=== PATIENT | female | born 1975 | race Caucasian/White ===

== ENCOUNTER 2025-02-26 00:06 | Day surgery (SDC) | payer BC, SELFPAY ==
[2025-02-07 09:37] VITALS: BMI 22.3
--- OUTSIDE RECORDS SUMMARY | 2025-02-26 00:09 | XMS_ITS | Referral Summary ---
Author Organization [facility] [address] Address [address] [place] [address] Care Team Providers Care Substation Superintendent Name Role Phone Maurice Rudd MD Primary Care Provider [phone] Sharon Sultana NP Unavailable Allergies No known active allergies Medications Aviane 0.1-20 mg-mcg per tablet 05/04/2020 Active promethazine (PHENERGAN) 12.5 mg tablet 06/19/2020 Acti ve ALPRAZolam (XANAX) 0.25 mg tablet as needed 10/02/2020 Active cyclobenzaprine (FLEXERIL) 10 mg tablet 5 mg 06/16/2020 Active venlafaxine XR (EFFEXOR-XR) 75 mg 24 hr capsule Take 3 capsules (225 mg total) by mouth daily 90 capsule 09/08/2023 Active propranoloL (INDERAL) 10 mg tablet Take 1 tablet (10 mg total) by mouth 2 (two) times a day as needed (tremor) 30 tablet 11 09/08/2023 Active Active Problems Problem Noted Date Diagnosed Date Mass of left breast 03/29/2022 Abnormal mammogram 07/19/2020 Dizziness and giddiness 05/07/2020 Social History Tobacco Use Types Packs/Day Years Used Date Smoking Tobacco: Never Smokeless Tobacco: Never Alcohol Use Standard Drinks/Week Comments Yes 0 (1 standard drink = 0.6 oz pur e alcohol) Personal Safety Answer Date Recorded Getting School Help Needed Not on file 08/10 Comments No Sex and Gender Information Value Date Recorded Sex Assigned at Not on file Legal Sex Female 1:09 PM CDT Gender Identity Female 07/18/2020 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 Sexual Orientation Straight 07/18/2020 7: 01 PM SEGMENT ASSEMBLER Last Filed Vital Signs Vital Sign Reading Time Taken Comments Blood Pressure 106/72 04/16/2021 10:40 AM CDT Pulse 74 04/16/2021 10:40 AM CDT Temperature 36.7 C (98.1 F) 04/16/2021 10:40 AM CDT Respiratory Rate - - Oxygen Saturation 99% 04/16/2021 10:40 AM CDT Inhaled Oxygen Concentration - - Weight 61.9 kg (136 lb 7.4 oz) 03/27/2022 11:28 AM CDT Height 154.9 cm (5' 1) 03/27/2022 11:28 AM CDT Body Mass Index 25.78 03/27/2022 11:28 AM CDT Plan of Treatment Not on file Procedures Procedure Name Priority Date/Time Associated Diagnosis Comments SCREENING MAMMOGRAM BILATERAL W PANCHO Schedule Routine, Read Routine (OP Routine) 07/02/2023 9:14 AM SEGMENT ASSEMBLER Screening mammogram, encounter for from Last 3 Months or Most Recently Relevant to Health Maintenance Results * Screening Mammogram Bilateral W Pancho (07/02/2023 9:14 AM SEGMENT ASSEMBLER) Anatomical Region Laterality Modality Breast Bilateral Mammography Impressions 07/02/2023 9:29 AM SEGMENT ASSEMBLER BI-RADS ATLAS category (overall): 2 - Benign There is no mammographic evidence of malignancy. A 1 year screening mammogram is recommended. The patient has been or will be contacted. We recommend annual screening mammography for women at average risk of breast cancer beginning at age 40, based on guidelines of the [employer] (ACR Practice Parameter for the Performance of Screening and Diagnostic Mammography) and [employer]. For women with and elevated risk of breast cancer, please refer to the ACR Practice Parameter for specific screening recommendations. The patient will be entered into a reminder system with a target due date of 1 year for her next screening exam. Narrative 07/02/2023 9:29 AM SEGMENT ASSEMBLER Screening Mammogram Bilateral W Pancho: 07/02/23 The study was acquired using full field digital technology and interpreted from soft copy. 2D digital mammographic views, as well as 3D digital tomosynthesis were performed in the CC and MLO projections. CLINICAL: Screening mammogram, encounter for. No relevant medical history has been documented for this patient. No known family history of breast cancer. COMPARISONS: 03/27/2022 Diagnostic Mammogram Bilateral W Pancho 07/04/2021 Breast Imaging Diagnostic Outside Reference 06/13/2021 Breast Imaging Screening Outside Reference 06/21/2020 Breast Imaging Outside Reference BREAST TISSUE: The breasts are heterogeneously dense, which may obscure small masses. FINDINGS: Left breast cysts are again identified. No suspicious masses, suspicious calcifications, or other suspicious findings are seen within either breast. There has been no suspicious change. us Self Screening Mammogram IMG MAMMO PROCEDURES Fi nal Result from Last 3 Months or Most Recently Relevant to Health Maintenance Insurance CHOICE [place] PPO [place] Care Teams Substation Superintendent Relationship Specialty Start Date End Date Maurice Rudd MD [phone] [place] [address] PCP - General Internal Medicine 05/03/20 Sharon Sultana NP [address] [place] [address] Nurse Practitioner 06/03/20
--- OUTSIDE RECORDS SUMMARY | 2025-02-26 00:10 | XMS_ITS | Clinical Summary ---
Author Organization [facility] Address [address] [place] [id number] Care Team Providers Care Lease Administrator Name Role Phone Maurice Rudd MD Primary Care Provider [phone] Allergies No known active allergies Medications naproxen 500 MG tablet Take 1 tablet (500 mg total) by mouth 2 (two) times daily with meals. 60 tablet 09/12/19 21 Active venlafaxine XR (EFFEXOR-XR) 75 MG 24 hr capsule Take 1 capsule (75 mg total) by mouth 3 (three) times daily. 09/08/19 24 Active propranolol LA (INDERAL LA) 60 MG 24 hr capsule propranolol ER 60 mg capsule,24 hr,extended release Active tobramycin-dexamet hasone (TOBRADEX) ophthalmic solution INSTILL 1 DROP INTO EACH EYE 4 TIMES DAILY FOR 7 DAYS THEN 1 INTO EACH EYE TWICE DAILY FOR 7 DAYS THEN STOP 08/11/20 23 Active ondansetron (ZOFRAN-ODT) 4 MG disintegrating tablet Take 1 tablet (4 mg total) by mouth every 8 (eight) hours as needed for Nausea. 20 tablet 02/15/20 24 Active Social History Tobacco Use Types Packs/Day Years Used Date Smoking Tobacco: Never Smokeless Tobacco: Never Tobacco Cessation:Counseling Given: No Alcohol Use Standard Drinks/Week Comments Not Currently 0 (1 standard drink = 0.6 oz pur e alcohol) PHQ-2 Answer Date Recorded Patient Health Questionnaire-2 Score 0 02/14/2024 Comments No Sex and Gender Information Value Date Recorded Sex Assigned at Not on file Legal Sex Female 7:00 PM CDT Gender Identity Not on file Sexual Orientation Not on file Last Filed Vital Signs Vital Sign Reading Time Taken Comments Blood Pressure 114/85 02/15/2024 12:22 AM CDT Pulse 120 02/14/2024 8:43 PM CDT Temperature 36.5 C (97.7 F) 02/14/2024 8:43 PM CDT Respiratory Rate 18 02/15/2024 12:22 AM CDT Oxygen Saturation 100% 02/15/2024 12:22 AM CDT Inhaled Oxygen Concentration - - Weight 58.4 kg (128 lb 12 oz) 02/14/2024 8:43 PM CDT Height 154.9 cm (5' 1) 02/14/2024 8:43 PM CDT Body Mass Index 24.33 02/14/2024 8:43 PM CDT Plan of Treatment Upcoming Encounters Date Type Department Care Team (Late st Contact Info) Description 05/17/2025 1:20 PM CDT Office Visit [facility] - [address] [place] [address] Easton Russ MD [address] [place] [id number] Health Maintenance Due Date Last Done Comments Colorectal Cancer Screening Colonoscopy (10 Years) 1974 Annual Physical 1977 Hepatitis C 1992 DTaP, Tdap and Td Vaccines (1 - Tdap) 1993 Hepatitis B Vaccines (1 of 3 - 19+ 3-dose series) 1993 Cervical Cancer Screening Pap with HPV Testing (Age 30 to 64) Every 5 Years 2004 Mammogram Screening 07/04/2023 07/04/2021, 06/13/2021, 05/30/2020, Additional history exists Cervical Cancer Screening Pap Smear (Age 30 to 64) Every 3 Years 02/04/2024 02/03/2021 Cervical Cancer Screening with HPV 02/04/2024 Pneumococcal Vaccine: 50+ Years (1 of 1 - PCV) 2024 Zoster Vaccines (1 of 2) 2024 COVID-19 Vaccine ( - 2023- season) 2024 PHQ-2 (Physician Morongo) 08/16/2024 02/14/2024 Meningococcal B Vaccine Aged Out No l onger eligible based on patient's age to complete this topic Meningococcal Vaccine Aged Out No harjeet pietro eligible based on patient's age to complete this topic RSV Immunizations Under 20 Months Aged Out No longer eligible based on patient's age to complete this topic Procedures Procedure Name Priority Date/Time Associated Diagnosis Comments MG DIAG ADD VIEW W PANCHO LT Routine 07/04/2021 9:21 AM NAILING MACHINE FEEDER Other abnormal and inconclusive findings on diagnostic imaging of breast from Last 3 Months or Most Recently Relevant to Health Maintenance Results * MG DIAG ADD VIEW W PANCHO LT (07/04/2021 9:21 AM NAILING MACHINE FEEDER) Anatomical Region Laterality Modality Left Mammography, Rad iographic Imaging 07/04/2021 10:5 6 AM NAILING MACHINE FEEDER Narrative 07/04/2021 10:59 AM NAILING MACHINE FEEDER LEFT BREAST DIAGNOSTIC MAMMOGRAPHY WITH TOMOSYNTHESIS AND COMPUTER AIDED DETECTION: MG DIAG ADD VIEW W PANCHO LT CLINICAL HISTORY: Other abnormal and inconclusive findings on diagnostic imaging of breast . COMPARISON STUDIES: 06/13/2021, 05/30/2020. FINDINGS: Spot compression views of the left breast in the MLO projection, left ML and left XCCL 2-D and 3-D acquisitions demonstrate persistent visualization of 3 ovoid asymmetries in the upper outer quadrant, these are well-circumscribed and where identified as benign cysts on same-day ultrasound. A third cyst demonstrate complex features and should be follow-up in 6 months with ultrasound. CONCLUSION: 1. BI-RADS Category 3 - probably benign findings, but short interval follow-up is recommended. Recommend 6 month follow up. 2. BREAST TISSUE COMPOSITION: There are scattered areas of fibroglandular density. MQSA BI-RADS Categories: Category 0 - needs additional imaging evaluation. Category 1 - negative. Category 2 - benign findings. Category 3 - probably benign findings, but short interval follow-up is recommended. Category 4 - suspicious abnormality and biopsy should be considered though the lesion may well be benign. Category 5 - highly suggestive of malignancy and appropriate action should be taken. A) A negative report should not delay a biopsy if a dominant or clinically suspicious mass is present. B) Adenosis and dense breasts may obscure an underlying neoplasm. C) Study interpreted with computer aided detection. Voice recognition software utilized. Ordered By: HOLLY SIEGEL Interpreted By: Nikita Huff, 07/04/2021 10:56 AM Holly Siegel EVENT PLANNING INTERN MAMMO Final Result from Last 3 Months or Most Recently Relevant to Health Maintenance Insurance Care Teams Lease Administrator Relationship Specialty Start Date End Date Maurice Rudd MD [address] [place] [id number] PCP - General INTERNAL MEDICINE 05/12/19
--- OUTSIDE RECORDS SUMMARY | 2025-02-26 00:10 | XMS_ITS | Data Portability ---
Author Organization [facility], [place] Address [address] [place] [address] Care Team Providers Care Rn Orthopaedics Name Role Phone KEVIN ARMENTA Primary Care Provider [phone] Assessment Encounter Date Assessment Date Assessment LastModified by Organization Details LastModified Time 02/03/2021 02/03/2021 Annual gynecological exam performed. Patient will come back in a year unless there are new symptoms. [email or web address] Not available 01/31/2021 11:25:12 02/11/2022 02/11/2022 Annual gynecological exam performed. Patient will come back in a year unless there are new symptoms. Suggest Calcium with Vitamin D if not eating in diet. Patient advised to get annual flu shot. Recommend yearly physicals and preform monthly breast exams. Genetic testing is available for patients with family history of cancer. Engage in safe sexual practices, use condoms. Encouraged to have daily exercise. Avoid tobacco and illicit drugs, moderation of alcohol. If BMI greater than 25 dietary consult advised. If you have any questions please call or email. has breast exam follow up scheduled with specialist. start slynd, samples given one month to be effective as bcm [email or web address] Not available 02/11/2022 11:36:31 02/19/2023 02/19/2023 Annual gynecological exam performed. Patient will come back in a year unless there are new symptoms. Suggest Calcium with Vitamin D if not eating in diet. Patient advised to get annual flu shot. Recommend yearly physicals and preform monthly breast exams. Genetic testing is available for patients with family history of cancer. Engage in safe sexual practices, use condoms. Encouraged to have daily exercise. Avoid tobacco and illicit drugs, moderation of alcohol. If BMI greater than 25 dietary consult advised. If you have any questions please call or email. plan pap next year mammogram in june samples of zhanna given Not available 02/19/2023 09:36:53 04/07/2024 04/07/2024 Annual gynecological exam performed. Patient will come back in a year unless there are new symptoms. Suggested Calcium with Vitamin D 1200-1500mg daily. Patient advised to get an annual flu shot in the fall and she could obtain at [facility] or [facility] clinic. Also to obtain TDap vaccination if you have not had one in the last 10 years. Recommend yearly mammograms. Encouraged monthly self breast exams. Encourage safe sexual practices, to use condoms and limit partners if not already in a monogamous relationship. Engage in daily exercise of low impact aerobic exercise 45-60 minutes 4-5 times weekly. Avoid tobacco and illicit drugs as well as using moderation with alcohol intake less than 1-2 8 oz beverages daily. This lifestyle behavior pattern will lead to less health conditions and longer life span. If BMI greater than 25 weight watchers or dietary consult advised. All questions have been answered. Patient appears to understand information, but if you have any questions please call or respond to this email. pap updated mammogram given Not available 04/07/2024 10:57:16 Plan of Treatment Reminders Order Date Submit Date Provider Last Modified By Organization Details Last Modified Time Details Appointments None recorded. Lab beta-HCG, quantitati ve, serum or plasma 2023 024 MEHRAN [facility] (Lab), [address], [place], [address], 4 03:54:38 pap, IG + HR HPV - HPV regardless but if HPV is positive need subtyping 16,18/45 2020 021 [email or web address] [facility] (Lab), [address], [place], [address], 1 15:43:09 Referral None recorded. Procedures None recorded. Surgeries None recorded. Imaging MAMMO, screening, digital, bilateral 2023 024 [email or web address] 1 [facility] (Imaging & Mammogram), [address], [place], [address], 5 10:03:00 Medication Orders venlafaxin e ER 75 mg capsule,ex tended release 24 hr 2023 024 [facility], [address], [place], [id number], 4 11:11:23 Aviane 0.1 mg-20 mcg tablet [email or web address] [id number], [address] [facility], [place], [address], 3 09:24:39 Patient TargetsNo targets recorded. Patient Instructions Encounter Date Encounter Id Patient Instructions Last Modified By Organization Details Last Modified Time 04/07/2024 mammogram: about this test Not available 04/07/2024 09:42:32 Reason for Referral None Reported. Results Created Date Observation Date Name Description Value Unit Range Abnormal Flag Note LastModifiedBy Organization Detail LastModifiedTime 02/04/20 21 02/03/2021 pap, IG + HR HPV image guided Pap, HPV regardless of Pap result SEE RESULT S BELOW CASE REPOR T: Cytol ogy Gynec ologi eva Repor t Case: [id number] Autho portia galarza Provi mayra: Sharon Menon CNM Colle cted: 02/03 1310 Order ing Locat ion: [place] [facility] Recei des: 02/04 0011 First Scree n: Cheryl Blake, CT Speci men: Scree kavitha Pap - Image d, Cervi x STATE MENT OF ADEQU ACY: Satis facto ry for evalu ation Trans forma tion zone compo nent prese nt FINAL DIAGN OSIS: Negat kaley for Intra epith elial Lesio n or Malig josue Elect ronkristin ally rob d by Cheryl Blake, CT on 2020 at 5:44 PM ----- ----- ----- ----- ----- ----- ----- ----- ----- ----- ----- ----- ----- ----- ----- ----- ----- ---- HPV RESUL TS: HPV mRNA E6/E7 : No HPV mRNA Detec jim NOTE: This high risk HPV mRNA assay detec ts fourt een high- risk HPV types (16, 18, 31, 33, 35, 39, 45, 51, 52, 56, 58, 59, 66, 68) witho ut diffe renti ation . CHART ABLE COMME NT: Note: This speci men was revie wed by a Cytot echno logis t and/o r Patho logis t (as indic ated in this repor t) after evalu ation using the Thinp rep Imagi ng Syste m. CLINI EVA INFOR MATIO N: Menst rual Statu s: LMP (if appli cable ): 2020 Clini eva Histo ry/Pr eviou s Pap: Type of Neopl lyn (if appli cable ): Other Histo ry: Hormo matilde (if appli cable ): PAP EDUCA LEN L NOTE: The Pap Test is a scree kavitha test with an inher ent false negat kaley rate. Liqui d-bas e sampl ing may decre ase, but will not elimi minna, false negat kaley resul ts. A negat kaley resul t does not precl ude the prese nce and/o r devel opmen t of disea se, since the prese nce of abnor mal cells in the sampl e depen ds on the locat ion of the lesio n and sampl ing techn ique. Randolph nued regul ar scree kavitha is the best metho d of cance r preve ntion . If repor jim cytol ogic findi ng do not corre late with physi eva and/o r histo rical findi ngs, fur er inves tigat ion is recom lizzette d, as clini kisha bojorquez nted. Not Available [facility] (Lab) [address], [place], [address], 02/04/2021 18:48:15 02/18/20 24 02/18/2024 [facility]AT[facility] VE B-HCG 10.0 mIU/m L This assay was perfo rmed using [employer] ratio n reage nts and test kits. Value s obtai michelle with other assay metho ds or kits canno t be used inter mcrae eably . Refer ence Range s: Non-p regna nt, preme nopau shane women : 0.0-5 .3 mIU/m L Postm enopa usal women : 0.0-7 .0 mIU/m L Caryn l Pregn rachel: Gesta len l Age bHCG Conc. - mIU/m L 3 Weeks 5.8 - 71.7 4 Weeks 9.5 - 750 5 Weeks 217-7 138 6 Weeks 158 - 31,79 5 7 Weeks 3,697 - 162,5 63 8 Weeks 32,06 5 - 149,5 71 9 Weeks 63,80 3 - 151,4 10 10 Weeks 46,50 9 - 186,9 77 12 Weeks 27,83 2 - 210,6 12 14 Weeks 13,95 0 - 62,53 0 15 Weeks 12,03 9 - 70,97 1 16 Weeks 9,040 - 56,45 1 17 Weeks 8,175 - 55,86 8 18 Weeks 8,099 - 58,17 6 Sligh t serum hCG eleva tion (5-14 mIU/m L) obser des in femal e patie nts aged 41-55 years may be due to the expre ssion from a pitui tary sourc e. [place] jim FSH (>=45 mIU/m L) suppo rts hCG of a pitui tary origi n. [place] cativ e evalu ation of hCG level s after two weeks estro gen-p roges mata e hormo ne repla cemen t may also be consi dered . Refer ences : Val Holly, Carmen Johns , Shaheen bradford, Laney moran, Efraín Andersonner , and Ramiro Espinosa che. 2008. Use of Serum FSH to Ident akira Perim enopa usal Women with Pitui tary hCG. Clini eva Chemi stry 54(4) :652- 56. Katerina Rodney, Yovana Newell i, and Madhavi gomez. 2007. Norm al Produ ction of Human Chori onic Gonad otrop in in Men[place] ause. The [place] of Medic ine 356(1 1):11 84-86 . Not Available [facility] (Lab) [address], [place], [address], 02/19/2024 03:54:38 03/01/20 24 03/01/2024 [facility], QUANT ITATI VE B-HCG 5.0 mIU/m L This assay was perfo rmed using [employer] n reage nts and test kits. Value s obtai michelle with other assay metho ds or kits canno t be used inter mcrae eably . Refer ence Range s: Non-p regna nt, preme nopau shane women : 0.0-5 .3 mIU/m L Postm enopa usal women : 0.0-7 .0 mIU/m L Caryn l Pregn rachel: Gesta len l Age bHCG Conc. - mIU/m L 3 Weeks 5.8 - 71.7 4 Weeks 9.5 - 750 5 Weeks 217-7 138 6 Weeks 158 - 31,79 5 7 Weeks 3,697 - 162,5 63 8 Weeks 32,06 5 - 149,5 71 9 Weeks 63,80 3 - 151,4 10 10 Weeks 46,50 9 - 186,9 77 12 Weeks 27,83 2 - 210,6 12 14 Weeks 13,95 0 - 62,53 0 15 Weeks 12,03 9 - 70,97 1 16 Weeks 9,040 - 56,45 1 17 Weeks 8,175 - 55,86 8 18 Weeks 8,099 - 58,17 6 Sligh t serum hCG eleva tion (5-14 mIU/m L) obser des in femal e patie nts aged 41-55 years may be due to the expre ssion from a pitui tary sourc e. [place] jim FSH (>=45 mIU/m L) suppo rts hCG of a pitui tary origi n. [place] cativ e evalu ation of hCG level s after two weeks estro gen-p roges mata e hormo ne repla cemcourtney t may also be consi dered . Refer ences : Val Holly, Carmen Gomez. Andreas , Shaheen Boo. Kani n, Laney Goetz l, Monse Moran. Nehemias , Efraín Quintanilla , and Ramiro Espinosa che. 2008. Use of Serum FSH to Ident akira Perim enopa usal Women with Pitui tary hCG. Clini eva Chemi stry 54(4) :652- 56. Katerina Rodney, Yovana Newell i, and Madhavi gomez. 2007. Norm al Produ ction of Human Chori onic Gonad otrop in in Men[place] ause. The New [place] al of Medic ine 356(1 1):11 84-86 . Not Available [facility] (Lab) [address] [facility], [place], [address], 03/02/2024 03:31:00 06/23/20 21 06/13/2021 MAMMO , scree kavitha, bilat eral No observ ation record ed. layran Not Available 2020 12:31:23 06/30/20 21 MAMMO , scree kavitha, bilat eral No observ ation record ed. [facility] (Imaging & Mammogram) [address] [place], [address], 06/30/2021 16:21:23 07/08/20 21 07/04/2021 MAMMO , diagn ostic , unila teral No observ ation record ed. aundrea Not Available 2020 14:01:50 07/08/20 21 07/04/2021 unlis jim imagi ng order No observ ation record ed. aruehrup [facility] (Imaging & Mammogram) [address] [place], [address], 07/09/2021 14:02:28 07/02/20 23 07/02/2023 MAMMO , harris plummervitor katyluisa No observ ation record ed. [email or web address] [facility] [address] [place], [address], 08/19/2023 17:04:07 Result Notes None recorded. 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 1 11:25:29 Screening for malignant neoplasm of cervix Completed 201501/31/2021 Screening for malignant neoplasms of the cervix;Re corded Elsewhere : No Locati on: [facility] So urce: EHR Chron ic: N Practic e ID: [id number] Bill able Time: 04:45:00 PM Hilary brush [facility] 1 11:25:26 Specializ ed medical examinati on Completed 201101/31/2021 Gynecolog ical Examinati on;Record ed Elsewhere : No Locati on: [facility] So urce: EHR Chron ic: N Practic e ID: [id number] Bill able Time: 04:45:00 PM Hilary brush [facility] 1 11:25:30 Screening for malignant neoplasm of rectum Completed 201401/31/2021 Screening for Ca of rectum;Re corded Elsewhere : No Locati on: [facility] So urce: EHR Chron ic: N Practic e ID: [id number] Bill able Time: 04:30:00 PM Hilary Meneses [facility] 1 11:25:27 Problem Notes None recorded. Procedures Surgical History Date Name Laterality Status Provider Name and Address Organization Details Recorded Time 4 Date of [facility] 09:46:08 1 Date of Last Mammogram completed [facility] 07/28/2021 16:55:16 4 Unlisted px ant segment eye completed [facility] 07/28/2021 17:03:57 2 tonsilectomy/a denoids completed [facility] 02/11/2022 10:15:46 Imaging Results None recorded. Procedure Notes None recorded. Medical Equipment None Reported. Allergies Allergen ID Allergen Name Allergen Category Reaction Reaction Severity Criticality Documentation Date Start Date Code Code System Note Provider Name and Address Organization Details Recorded Time 34374 No known allergy (situatio n) Not available Not available Not available Not available 04/07/2024 25600 6003 SNOMED Alberta Coy [facility] 4 09:45:46 Medications Name Sig Start Date Stop Date Status Note LastModified by Organization Details LastModified Time [facility] covid-19 rapid test 02/19 completed Not Available Not Available Not Available [facility] 2-pk kit covid-19 02/19 completed Not Available Not Available Not Available cyclobenzap rine 10 mg tablet 01/31 completed Not Available Not Available Not Available venlafaxine ER 37.5 mg capsule,ext ended release 24 hr 01/31 completed Not Available Not Available Not Available Aviane 0.1 mg-20 mcg tablet TAKE 1 TABLET BY MOUTH EVERY DAY 02/19 completed Not Available Not Available Not Available prednisone 10 mg tablet TAKE 3 TABS DAILY FOR 3 DAYS THEN 2 TABS DAILY FOR 3 DAYS THEN 1 TAB DAILY FOR 3 DAYS TAKE WITH FOOD 01/31 completed Not Available Not Available Not Available venlafaxine ER 75 mg capsule,ext ended release 24 hr TAKE ONE CAPSULE BY MOUTH THREE TIMES DAILY active Not Available Not Available No t Available azithromyci n 250 mg tablet TAKE 2 TABLETS BY MOUTH TODAY, THEN TAKE 1 TABLET DAILY FOR 4 DAYS 01/31 completed Not Available Not Available Not Available promethazin e 12.5 mg tablet TAKE 1 2 TABS EVERY 6 HOURS NEEDED FOR NAUSEA OR MIGRAINE 01/31 completed Not Available Not Available Not Available propranolol ER 60 mg capsule,24 hr,extended release active Not Available Not Available Not Available Pyridium 200 mg tablet Take 1 tablet 3 times a day by oral route for 3 days. 07/28 completed Not Available Not Available Not Available venlafaxine ER 150 mg capsule,ext ended release 24 hr 02/19 completed Not Available Not Available Not Available ciprofloxac in 500 mg tablet ORAL TAKE 1 TABLET TWICE A DAY X 10 DAYS 01/31 completed Not Available Not Available Not Available sulfamethox azole 800 mg-trimetho prim 160 mg tablet 01/24 completed Not Available Not Available Not Available terbinafine HCl 250 mg tablet TAKE 1 TABLET BY MOUTH EVERY DAY 01/31 completed Not Available Not Available Not Available propranolol 10 mg tablet 04/07 completed Not Available Not Available Not Available alprazolam 0.25 mg tablet TAKE 1 TABLET BY MOUTH EVERY DAY NEEDED FOR ANXIETY 02/17 completed Not Available Not Available Not Available meclizine 25 mg tablet TAKE 1 TABLET BY MOUTH 3 TIMES A DAY active Not Available Not Available No t Available baclofen 10 mg tablet 01/31 completed Not Available Not Available Not Available oseltamivir 75 mg capsule 01/24 completed Not Available Not Available Not Available mupirocin 2 % topical ointment APPLY TO AFFECTED AREA TWICE A DAY 01/31 completed Not Available Not Available Not Available ondansetron 4 mg disintegrat ing tablet TAKE ONE TABLET BY MOUTH EVERY 8 HOURS NEEDED FOR NAUSEA 02/17 completed Not Available Not Available Not Available naproxen 500 mg tablet 500 mg twice a day by oral route. 01/31 completed Not Available Not Available Not Available Tylenol Extra Strength 500 mg tablet 1000 mg every 6 hours by oral route. 02/24 completed Not Available Not Available Not Available tobramycin 0.3 %-dexametha sone 0.1 % eye drops,suspe nsion INSTILL 1 DROP INTO EACH EYE 4 TIMES DAILY FOR 7 DAYS THEN 1 INTO EACH EYE TWICE DAILY FOR 7 DAYS THEN STOP 02/17 completed Not Available Not Available Not Available cyclobenzap rine 5 mg tablet TAKE 1 TO 2 TABLETS BY MOUTH AT BEDTIME 01/31 completed Not Available Not Available Not Available nitrofurant oin monohydrate /macrocryst als 100 mg capsule Take 1 capsule every 12 hours by oral route for 10 days. 07/28 completed Not Available Not Available Not Available promethazin e active Not Available Not Available Not Available cyclobenzap rine 02/19 completed Not Available Not Available Not Available Travel Sickness (meclizine) 25 mg chewable tablet 01/31 completed Not Available Not Available Not Available Slynd 4 mg (28) tablet Take 1 tablet every day by oral route. active Not Available Not Available No t Available Vitals Date Recorded Body height Body mass index (BMI) Body weight Systolic And Diastolic Provider Name and Address Organization Details Last Updated DateTime 02/03/2021 157.48 cm 24 kg/m2 58703.6 g 127/77 mm[Hg] Hilary Meneses [facility] 02/03/2021 11:59:50 Date Recorded Body height Body mass index (BMI) Body weight Systolic And Diastolic Provider Name and Address Organization Details Last Updated DateTime 02/11/2022 157.48 cm 24 kg/m2 94653.6 g 131/80 mm[Hg] Alberta Coy [facility] 02/11/2022 10:14:08 Date Recorded Body height Body mass index (BMI) Body weight Systolic And Diastolic Provider Name and Address Organization Details Last Updated DateTime 02/18/2024 157.48 cm 23.1 kg/m2 43603.08 g 125/77 mm[Hg] Coral Juares [facility] 02/18/2024 10:52:21 Date Recorded Body height Body mass index (BMI) Body weight Systolic And Diastolic Provider Name and Address Organization Details Last Updated DateTime 02/19/2023 157.48 cm 23.6 kg/m2 43604.42 g 113/78 mm[Hg] Alberta Coy [facility] 02/19/2023 09:24:32 Date Recorded Body height Body mass index (BMI) Body weight Systolic And Diastolic Provider Name and Address Organization Details Last Updated DateTime 04/07/2024 157.48 cm 23.4 kg/m2 88244.82 g 125/81 mm[Hg] Alberta Coy [facility] 04/07/2024 09:45:30 Social History Question Answer Notes LastModified by Organizat ion Details LastModified Time Tobacco Smoking Status Never Smoker Lloyd Arriola trudi [facility] 02/11/2022 09:59:41 Do You Have An Advance Directive? No [email or web address] Information n ot available 02/03/2021 How Many Years Have You Consumed Alcohol? 25 [email or web address] Information not available 02/03/2021 Are You Blind Or Do You Have Difficulty Seeing? No [email or web address] Information n ot available 02/03/2021 What Is Your Level Of Caffeine Consumption? Moderate Information not available 02/03/2021 How Much Tobacco Do You Chew? None [email or web address] Information not available 02/03/2021 In The 14 Days Before Symptom Onset, Have You Had Close Contact With A Laboratory-confirm ed COVID-19 While That Case Was Ill? No [email or web address] Information n ot available 02/03/2021 In The 14 Days Before Symptom Onset, Have You Had Close Contact With A Person Who Is Under Investigation For COVID-19 While That Person Was Ill? No [email or web address] Information not available 02/03/2021 Have You Been To An Area Known To Be High Risk For COVID-19? No [email or web address] Information not available 02/03/2021 Are You Deaf Or Do You Have Serious Difficulty Hearing? No [email or web address] Information not available 02/03/2021 What Type Of Diet Are You Following? REGULAR [email or web address] Information n ot available 02/03/2021 What Is The Highest Grade Or Level Of School You Have Completed Or The Highest Degree You Have Received? BO58176-4 [email or web address] Information not available 02/03/2021 Are There Any Guns Present In Your Home? No [email or web address] Information not available 02/03/2021 Do You Use Protection During Sex? No [email or web address] Information not available 02/03/2021 Do You Use Your Seat Belt Or Car Seat Routinely? Yes [email or web address] Information not available 02/03/2021 Do You Have Smoke And Carbon Monoxide Detectors In Your Home? Yes [email or web address] Information not available 02/03/2021 How Much Tobacco Do You Smoke? No [email or web address] Information not available 02/03/2021 Do You Use Sunscreen Routinely? Yes [email or web address] Information not available 02/03/2021 Have You Used IV Drugs? No Information not available 02/03/2021 Do You Have Difficulty Walking Or Climbing Stairs? Yes [email or web address] Information not available 02/11/2022 Sex: Unknown Functional Status Question Answer Note LastModified by Organizat ion Details LastModified Time Do you use any illicit or recreational drugs? No [email or web address] Information not available 02/03/2021 What is your level of alcohol consumption? Occasional [id number] Information not available 06/18/2020 Are you able to walk? [email or web address] Information not available 02/03/2021 Are you able to care for yourself? 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 No [email or web address] Information not available 02/11/2022 What is your exercise level? Occasional walking [id number] Information not available 06/18/2020 Mental Status Question Answer Note LastModified by Organization D etails LastModified Time Do you feel stressed (tense, restless, nervous, or anxious, or unable to sleep at night)? [id number] [email or web address] Information not available 02/03/2021 Family History Relationship Description Onset Age of this Age Resolved Age Notes LastModified by Organization Details LastModified Time Unspecified Relation Family history unknown [email or web address] Not available 02/11 10:14:14 Unspecified Relation Family history unknown [email or web address] Not available 02/11 10:14:14 Notes:patient was adopted un aware of family history Medical History Condition Response Allergies (Food, seasonal, environmental ) N Other Y Breast Cancer N Drug/Latex Allergies/Reactions N Blood Transfusion N Lung Disease N Dermatologic Disorders N Defects or Inherited Disease N Breast Problem Y Gestational Diabetes N Hematologic disorders N Anesthesia Complications N History of STI N Deep Vein Thrombosis N Polycystic ovary syndrome N Anxiety Disorder Y Autoimmune disease N Arthritis N Infertility N Polyps N Acid Reflux (GERD) N History of abnormal pap N Cancer N Stroke N Varicosities N Neurologic/Epilepsy Y Endometriosis N High Cholesterol N Headaches Y Fibromyalgia N Kidney Disease N Heart Problems N Kidney or Bladder Problems N Thyroid Problems N GI Problems N Eating Disorder N Anemia N Art (IVF or FET) N Psychiatric Illness N Ovarian Cancer N Diabetes N Pulmonary (TB, Asthma) N Hepatitis/Liver Disease N No Past Medical History N Eczema N Urinary Tract Infection Y Abuse/Domestic Violence N Asthma N Trauma/Violence N Depression/ depression Y Heart Disease N Pre-Eclampsia N Hypertension N Osteoporosis N Thrombophilias N Gynecological History Statement/Question Response Abnormal Pap N Date of Last Mammogram 07/04/2021 Date of LMP 02/28/2024 On BCP's at Conception? Y Was last menstrual period normal Y STIs/STDs N HPV Vaccine N Duration of Flow (days) 6 Current Control Method BCPs Age at First Child 22 Frequency of Cycle (Q days) 28 Most Recent Bone Density Sexually Active? Y BCPs Age of first menstrual cycle 12 Date of Last Pap Smear 04/07/2024 Sexual Problems? N LMP Approximate Obstetrics History GPAL:G 4 P 4 0 0 4 Type Value Full Term 4 Living 4 Total 4 Past Encounters Encounter ID Performer Location Encounter Start Date Encounter Closed Date Diagnosis/Indication Diagnosis SNOMED-CT Code Diagnosis ICD10 Code Diagnosis Note [id number] Sharon Sultana CNM [place] [address] [address] 01/25/2020 15:31:05 01/25/2020 16:16:44 Gynecologic examination [id number] Z01.419 Suggested Calcium with Vitamin D 1200-1500m g daily. Patient advised to get an annual flu shot in the fall and she could obtain at [facility] or [facility] clinic. Also to obtain TDap vaccinatio n if you have not had one in the last 10 years. Recommend yearly mammograms . Encouraged monthly self breast exams. Encourage safe sexual practices, to use condoms and limit partners if not already in a monogamous relationsh ip. Engage in daily exercise of low impact aerobic exercise 45-60 minutes 4-5 times weekly. Avoid tobacco and illicit drugs as well as using moderation with alcohol intake less than 1-2 8 oz beverages daily. This lifestyle behavior pattern will lead to less health conditions and longer life span. If BMI greater than 25 weight watchers or dietary consult advised. All questions have been answered. Patient appears to understand informatio n, but if you have any questions please call or respond to this email.p [id number] Sharon Sultana CNM [facility] [address] [address] 02/03/2021 11:46:20 02/04/2021 15:24:35 Gynecologic examination [id number] Z01.419 Z11.51 Suggested Calcium with Vitamin D 1200-1500m g daily. Patient advised to get an annual flu shot in the fall and she could obtain at [facility] or [facility] clinic. Also to obtain TDap vaccinatio n if you have not had one in the last 10 years. Recommend yearly mammograms . Encouraged monthly self breast exams. Encourage safe sexual practices, to use condoms and limit partners if not already in a monogamous relationsh ip. Engage in daily exercise of low impact aerobic exercise 45-60 minutes 4-5 times weekly. Avoid tobacco and illicit drugs as well as using moderation with alcohol intake less than 1-2 8 oz beverages daily. This lifestyle behavior pattern will lead to less health conditions and longer life span. If BMI greater than 25 weight watchers or dietary consult advised. I would like to contact pcp and neurologis t to ensure they are comfortabl e with patient continuing on ocp with her recent health concerns and medication s. All questions have been answered. Patient appears to understand informatio n, but if you have any questions please call or respond to this email. [id number] Holly Siegel CNM [facility] [address],[place] [address] 02/11/2022 09:55:43 02/11/2022 17:49:10 Gynecologic examination [id number] Z01.419 [id number] Holly Siegel [facility] [address],[place] [address] 02/19/2023 09:12:16 02/19/2023 09:42:36 Gynecologic examination [id number] Z01.419 [id number] BRYON DUVALL MD [facility] [address],[place] [address] 02/18/2024 10:38:58 02/21/2024 14:41:00 test positive [id number] Z32.01 - +blood hCG in the ER on Wednesday, hCG 10- currently on Slynd- pelvic US wnl in ER- likely false positive, will check quant hCG and urine hCG to rule out heterophil ic antibodies [id number] Holly Siegel [facility] [address],[place] [address] 04/07/2024 09:34:23 04/07/2024 11:04:08 Screening for malignant neoplasm of breast [id number] Z12.31 Gynecologi c examination [id number] Z01.419 Z11.51 Health Concerns Section Related Observation LastModified by Organization Detai ls LastModified Time None Recorded Concern Status LastModified by Organization Details LastModified Time None Recorded Advance Directives Directive N: Payers Insurance Date Sequence Insurance Name Policy Number Policy Valencia Covered Member ID Valencia Member ID Guarantor Name 02/19/2023 1 [facility] Sravanthi Roberts [id number] Sravanthiobie Restrepoian 02/09/2022 1 [employer] [id number] Florentino Roberts [id number] Sravanthi Luisa Roberts 02/19/2023 [employer] [id number] Sravanthi L Kayeian [id number] Sravanthi L Burian 04/10/2024 1 [place] [id number] Florentino Roberts [id number] Sravanthi L Burian Notes Date Note Type Note Provider Name and Address Organization Details Recorded Time 02/03/2021 text/html Annual GYNReport ed bypatient.Menstrual cycle:Normal menses Urinary symptoms:No hematuria; No incontinence Vulva:No genital lesion Vagina:Normal vaginal discharge Breast:No breast pain; No breast lump; No nipple discharge Sexual complaints:No sexual complaints; No pain during intercourse; Normal libido Menopausal Symptoms:No menopausal symptoms; Normal vaginal lubrication Psychological symptoms:No depression; No anxiety; No PMDD Dealing with severe vertigo. Dr Armenta pcp has seen her for this. MRI in August facial numbness. She was then seen by Dr Pan. Dr Amparo Pan neurologist. Started venlafaxine. F/U Wednesday. Dr Reeves managing tendonitis in left arm. Also seeing p.t. for tendonitis. Currently not exp any facial symptoms. Vertigo off and on. Mild cp. Headaches/Migraines. Denies aura. Propranolol for shakey hands Sharon brush [facility] 02/11/2021 20:10:20 02/11/2022 text/html Annual GYNReport ed bypatient.Menstrual cycle:Normal menses Urinary symptoms:No hematuria; No incontinence Vulva:No genital lesion Vagina:Normal vaginal discharge Breast:No breast pain; No breast lump; No nipple discharge Sexual complaints:No sexual complaints; No pain during intercourse; Normal libido Menopausal Symptoms:No menopausal symptoms; Normal vaginal lubrication Psychological symptoms:No depression; No anxiety; No PMDD Preventive measures:Encourage self breast examination; Encourage regular exercise; Encourage no tobacco use; Encourage regular mammograms starting age 40Notes:declines breast exam has follow up with specialist, neuro took off ocp, has had new aura with her migraine, wants something to help regulate cycles Holly Siegel CNM [address], [place], [address], [facility] 02/11/2022 11:36:41 02/19/2023 text/html Annual GYNReport ed bypatient.History:no gynecologic complaints; no change in interval history Menstrual cycle:Normal menses Breast:No breast pain; No breast lump; No nipple discharge Sexual complaints:No sexual complaints; No pain during intercourse; Normal libido Menopausal Symptoms:No menopausal symptoms; Normal vaginal lubrication Psychological symptoms:No depression; No anxiety; No PMDD Preventive measures:Encourage self breast examination; Encourage regular exercise; Encourage no tobacco use; Encourage regular mammograms starting age 40Notes:no longer seeing breast specialist ok to do mammogram locally, pap up to date, no hx abnl pap Holly Siegel CNM [address], [place], [address], [facility] 02/19/2023 09:38:44 02/18/2024 text/html Abdominal pain starting Wednesday, Pain improved somewhat on Wednesday, however worsened on Wednesday night after eating potato skins and spicy chicken. Went to urgent care on Wednesday, had a positive UPT. Was sent to the ER for further testing, had hCG of 10. US at that time demonstrated empty uterus, no evidence of ectopic . Pain is now improved. BRYON DUVALL MD [address], [place], [address], [facility] 02/18/2024 22:03:18 04/07/2024 text/html Annual GYNReport ed bypatient.History:no gynecologic complaints; had + HCG, 5 at last check Menstrual cycle:Normal menses Urinary symptoms:No hematuria; No incontinence Vulva:No genital lesion Vagina:Normal vaginal discharge Breast:No breast pain; No breast lump; No nipple discharge Current Contraception:Satisf ied with current contraception; Oral contraceptives Sexual complaints:No sexual complaints; No pain during intercourse; Normal libido Menopausal Symptoms:No menopausal symptoms; Normal vaginal lubrication Psychological symptoms:No depression; No anxiety; No PMDD Preventive measures:Encourage self breast examination; Encourage regular exercise; Encourage no tobacco useNotes:neurologist left the area, is trying to find another will rx her refillsdoing well on slynd Holly Siegel CNM [address], [place], [address], [facility] 04/07/2024 10:59:01 OBGyn Episode Ob Episode Information Episode Created Date Number of Fetuses Patient Bloodtype Patient rh Status Prepregnancy Weight lbs Domestic Partner Domestic Partner Phone Father Name Shoe Turner Status 01/25/20 20 1 CLOSED Fetus Data First Name Last Name Admitted to NICU Weight (g) Sex Living Outcome Pediatric Complications Fetus ID Race Codes Race Delivery Type 3543.46 0704 M Full Term 2195 Vaginal Delivery Jovani Calculation Initial Jovani Date Initial Exam Date Initial Exam Provider Initial Ultrasound Date Last Menstrual Period Date Ultra Sound Weeks Gestation 0 Eighteen To Twenty Week Jovani Update Ultra Sound Date Fundal Height At Umbil Quickening Date Ultra Sound Latest Weeks Gestation Final Jovani Confirmed By Final Jovani Confirmed Date Final Jovani Date Ultra Sound Latest Days Gestation 0 0 Menstrual History Last Menstrual Date Menses Monthly On Bcp Conception Prior Menses Frequency Hcg Plus Date Menarche Onset Age Delivery Information Delivery Date Delivery Type Labor Anesthesia Weeks Gestation Incision Type Labor Labor Length Hrs Delivered By Post Complications Tubal Sterilization Discharge Date Comments 8 38 morena Discharge Information Feeding Method Contraceptive Method Maternal HG B and HCT Levels Ob Episode Information Episode Created Date Number of Fetuses Patient Bloodtype Patient rh Status Prepregnancy Weight lbs Domestic Partner Domestic Partner Phone Father Name Shoe Turner Status 01/25/20 20 1 CLOSED Fetus Data First Name Last Name Admitted to NICU Weight (g) Sex Living Outcome Pediatric Complications Fetus ID Race Codes Race Delivery Type 3572.03 7 M Full Term 2194 Vaginal Delivery Jovani Calculation Initial Jovani Date Initial Exam Date Initial Exam Provider Initial Ultrasound Date Last Menstrual Period Date Ultra Sound Weeks Gestation 0 Eighteen To Twenty Week Jovani Update Ultra Sound Date Fundal Height At Umbil Quickening Date Ultra Sound Latest Weeks Gestation Final Jovani Confirmed By Final Jovani Confirmed Date Final Jovani Date Ultra Sound Latest Days Gestation 0 0 Menstrual History Last Menstrual Date Menses Monthly On Bcp Conception Prior Menses Frequency Hcg Plus Date Menarche Onset Age Delivery Information Delivery Date Delivery Type Labor Anesthesia Weeks Gestation Incision Type Labor Labor Length Hrs Delivered By Post Complications Tubal Sterilization Discharge Date Comments 2 40 gwendolyn Discharge Information Feeding Method Contraceptive Method Maternal HG B and HCT Levels Ob Episode Information Episode Created Date Number of Fetuses Patient Bloodtype Patient rh Status Prepregnancy Weight lbs Domestic Partner Domestic Partner Phone Father Name Shoe Turner Status 01/25/20 20 1 CLOSED Fetus Data First Name Last Name Admitted to NICU Weight (g) Sex Living Outcome Pediatric Complications Fetus ID Race Codes Race Delivery Type 2494.75 6 F Full Term 2192 Vaginal Delivery Jovani Calculation Initial Jovani Date Initial Exam Date Initial Exam Provider Initial Ultrasound Date Last Menstrual Period Date Ultra Sound Weeks Gestation 0 Eighteen To Twenty Week Jovani Update Ultra Sound Date Fundal Height At Umbil Quickening Date Ultra Sound Latest Weeks Gestation Final Jovani Confirmed By Final Jovani Confirmed Date Final Jovani Date Ultra Sound Latest Days Gestation 0 0 Menstrual History Last Menstrual Date Menses Monthly On Bcp Conception Prior Menses Frequency Hcg Plus Date Menarche Onset Age Delivery Information Delivery Date Delivery Type Labor Anesthesia Weeks Gestation Incision Type Labor Labor Length Hrs Delivered By Post Complications Tubal Sterilization Discharge Date Comments 0 37.5 Sarita --SGA, [place] Discharge Information Feeding Method Contraceptive Method Maternal HG B and HCT Levels Ob Episode Information Episode Created Date Number of Fetuses Patient Bloodtype Patient rh Status Prepregnancy Weight lbs Domestic Partner Domestic Partner Phone Father Name Shoe Turner Status 01/25/20 20 1 CLOSED Fetus Data First Name Last Name Admitted to NICU Weight (g) Sex Living Outcome Pediatric Complications Fetus ID Race Codes Race Delivery Type 3486.76 1704 M Full Term 2193 Vaginal Delivery Jovani Calculation Initial Jovani Date Initial Exam Date Initial Exam Provider Initial Ultrasound Date Last Menstrual Period Date Ultra Sound Weeks Gestation 0 Eighteen To Twenty Week Jovani Update Ultra Sound Date Fundal Height At Umbil Quickening Date Ultra Sound Latest Weeks Gestation Final Jovani Confirmed By Final Jovani Confirmed Date Final Jovani Date Ultra Sound Latest Days Gestation 0 0 Menstrual History Last Menstrual Date Menses Monthly On Bcp Conception Prior Menses Frequency Hcg Plus Date Menarche Onset Age Delivery Information Delivery Date Delivery Type Labor Anesthesia Weeks Gestation Incision Type Labor Labor Length Hrs Delivered By Post Complications Tubal Sterilization Discharge Date Comments 5 39 milind Discharge Information Feeding Method Contraceptive Method Maternal HG B and HCT Levels
--- OUTSIDE RECORDS SUMMARY | 2025-02-26 00:10 | XMS_ITS | Clinical Summary ---
Author Organization [facility] [address] [email or web address] [address] Care Team Providers Care Cafeteria Manager Name Role Phone Maurice Rudd MD Primary Care Provider [phone] Sharon Sultana NP Unavailable Allergies No known active allergies Medications Aviane 0.1-20 mg-mcg per tablet 05/04/2020 Active promethazine (PHENERGAN) 12.5 mg tablet 06/19/2020 Acti ve ALPRAZolam (XANAX) 0.25 mg tablet as needed 10/02/2020 Active cyclobenzaprine (FLEXERIL) 10 mg tablet 5 mg 06/16/2020 Active venlafaxine XR (EFFEXOR-XR) 75 mg 24 hr capsule Take 3 capsules (225 mg total) by mouth daily 90 capsule 11 09/08/2023 Active propranoloL (INDERAL) 10 mg tablet Take 1 tablet (10 mg total) by mouth 2 (two) times a day as needed (tremor) 30 tablet 11 09/08/2023 Active Active Problems Problem Noted Date Diagnosed Date Mass of left breast 03/29/2022 Abnormal mammogram 07/19/2020 Dizziness and giddiness 05/07/2020 Surgical History Surgery Date Site/Laterality Comments TONSILLECTOMY EYE SURGERY Medical History Medical History Date Comments Cerebral palsy (HCC) Dizziness Social History Tobacco Use Types Packs/Day Years [...] CDT Gender Identity Female 07/18/2020 7:01 PM HOT ROLLER Sexual Orientation Straight 07/18/2020 7: 01 PM HOT ROLLER Obstetrics History Last Filed Vital Signs Vital Sign Reading [...] 03/27/2022 11:28 AM CDT Plan of Treatment Health Maintenance Due Date Last Done Comments Cervical Cancer Screening 1974 Colon Cancer Screening-Colonoscopy 1974 Depression Screening 1974 Hepatitis C Screening 1974 DTaP/Tdap/Td Vaccine (1 - Tdap) 1985 Hepatitis B Screening 1992 Regular Well Visit/Exam 18-64 1992 Zoster Vaccine (1 of 2) 2024 Breast Cancer Screening-Mammogram 07/02/2024 07/02/2023, 03/27/2022 Influenza Vaccine (Season Ended) 2025 Pneumococcal vaccine <65 Aged Out No longer eligible based on patient's age to complete this topic Procedures Procedure Name Priority Date/Time Associated Diagnosis Comments SCREENING MAMMOGRAM BILATERAL W PANCHO Schedule Routine, Read Routine (OP Routine) 07/02/2023 9:14 AM HOT ROLLER Screening mammogram, encounter for from Last 3 Months or Most Recently Relevant to Health Maintenance Results * Screening Mammogram Bilateral W Pancho (07/02/2023 9:14 AM HOT ROLLER) Anatomical Region Laterality Modality Breast Bilateral Mammography Impressions 07/02/2023 9:29 AM HOT ROLLER BI-RADS ATLAS category (overall): 2 - Benign There is no mammographic evidence of malignancy. A 1 year screening mammogram is recommended. The patient has been or will be contacted. We recommend annual screening mammography for women at average risk of breast cancer beginning at age 40, based on guidelines of the [employer] (ACR Practice Parameter for the Performance of Screening and Diagnostic Mammography) and [employer]. For women with and elevated risk of breast cancer, please refer to the ACR Practice Parameter for specific screening recommendations. The patient will be entered into a reminder system with a target due date of 1 year for her next screening exam. Narrative 07/02/2023 9:29 AM HOT ROLLER Screening Mammogram Bilateral W Pancho: 07/02/23 The [...] to Health Maintenance [place] Care Teams Cafeteria Manager Relationship Specialty Start Date End Date Maurice Rudd MD [address] [place] [address] PCP - General Internal Medicine 05/03/20 Sharon Sultana NP [address] [place] [address] Nurse Practitioner 06/03/20
--- NOTE | 2025-02-26 07:57 | P.PNAN_ITS ---
Anes - Initial Pre Proc Eval Procedure: Operation Date: 02/26/25 09:00 Proposed Procedures p Screening Colonoscopy - Fab Cline DO Date/Time: 02/26/25 07:57 Surgeon: Fab Cline DO Pre Op Diagnosis: Screening for malignant neoplasm of colon Patient Data Age: 49 Gender: F Height: 1.55 m Weight: 53.6 kg Allergies Allergy/AdvReac Type Severity Reaction Status Date / Time No Known Allergies Allergy Unknown Verified 02/26/25 08:17 Home Medications ?Medication ?Instructions ?Recorded ?Confirmed ?Type drospirenone 3 mg-ethinyl 1 tablet PO DAILY 03/30/23 02/07/25 History estradiol 0.03 mg tablet (Della) propranolol 10 mg tablet 10 mg PO Q12H 03/30/23 02/07/25 History venlafaxine 225 mg tablet,extended 225 mg PO DAILY 03/30/23 02/07/25 History release 24 hr Patient hx anesthesia problems: none Family hx anesthesia problems: none Results Review: All pre-operative results and documents have been reviewed as part of the pre- operative evaluation. [facility] Past Medical History Medical History (Updated 02/26/25 @ 09:08 by Fab Cline DO) Injury of right elbow Left shoulder pain Cerebral palsy mild Surgical History Surgical History Hx of tonsillectomy History of eye surgery Family History Family History Other Adopted Social History Social History Smoking status: Never smoker Alcohol intake: never Substance use: never Substance use type: does not use Lack of Transportation: No Lack of Food: Never True Current Housing: I Have Housing Concerned About Future Housing: No Difficulty Paying Gas/Electric Bills: No Difficulty Paying for Meds: No Currently Unemployed: No Education: Don't Know Difficulty w/ Childcare or Family Care: No Living arrangements: with family Occupation/Education: occupation Gender identity (if verbalized by the patient): Female Spiritual care concerns: No Anes - Eval Final PreProcedure Day of Procedure 02/26/25 07:57 Patient weight: normal Heart: regular rate and rhythm Lungs: clear to auscultation and normal air movement Airway: Mallampati scale class II Neurological: alert and oriented Last oral intake: >/= 8 hours ASA classification: II Emergent: no Anesthetic plan: proceed Anesthesia type and monitoring: general GIVS and standard monitoring Results Review: All pre-operative results and documents have been reviewed as part of the pre- operative evaluation. Informed Consent: The patient's anesthetic plan and its attendant risks and benefits were discussed with the patient/family/POA. Questions were solicited and answers provided to the satisfaction of the patient/family/POA.
[2025-02-26 08:25] VITALS: BP 121/82; PULSE 102; RESP 18; TEMP 36.5; O2SAT 100
[2025-02-26 08:30] LABS: BEDSIDEPREGUCG Negative (Negative)
[2025-02-26] MEDS: LACTATED RINGERS 1,000 ML 150 ML IV CONT (08:38)
--- NOTE | 2025-02-26 09:07 | PM.IMHP ---
H&P: HPI History of Present Illness Date/Time: 02/26/25 09:07 Chief Complaint: screening for colorectal cancer Narrative: this is a 49-year-old woman who presents for her 1st colonoscopy. She denies any hematochezia or melena. She denies family history of colon cancer. Review of Systems Review of Systems: All systems reviewed & are unremarkable except as noted in HPI and below Constitutional: Constitutional: Denies chills, Denies fever(s), Denies headache(s) and Denies weight loss Eyes: Eyes: Denies change in vision ENT: Denies dizziness, Denies headache(s), Denies neck mass and Denies throat swelling Cardiovascular: Cardiovascular: Denies chest pain, Denies lightheadedness and Denies dyspnea Respiratory: Respiratory: Denies cough, Denies dyspnea and Denies wheezing Gastrointestinal: Gastrointestinal: Denies abdominal pain, Denies change in bowel habits, Denies nausea and Denies vomiting Genitourinary: Genitourinary: Denies hematuria and Denies dysuria Musculoskeletal: Musculoskeletal: Reports as per HPI Integumentary/Breasts: Skin/Breast: Reports as per HPI Neurologic: Denies dizziness and Denies headache(s) Allergic/Immunologic: Allergic/Immunologic: Denies throat swelling and Denies wheezing PMFSH Past Medical History Medical History (Updated 02/26/25 @ 09:08 by Fab Cline DO) Injury of right elbow Left shoulder pain Cerebral palsy mild Surgical History Surgical History Hx of tonsillectomy History of eye surgery Family History Family History Other Adopted Social History Social History Smoking status: Never smoker Alcohol intake: never Substance use: never Substance use type: does not use Lack of Transportation: No Lack of Food: Never True Current Housing: I Have Housing Concerned About Future Housing: No Difficulty Paying Gas/Electric Bills: No Difficulty Paying for Meds: No Currently Unemployed: No Education: Don't Know Difficulty w/ Childcare or Family Care: No Living arrangements: with family Occupation/Education: occupation Gender identity (if verbalized by the patient): Female Spiritual care concerns: No Meds Home Medications and Allergies Home Medications ?Medication ?Instructions ?Recorded ?Confirmed ?Type drospirenone 3 mg-ethinyl 1 tablet PO DAILY 03/30/23 02/07/25 History estradiol 0.03 mg tablet (Della) propranolol 10 mg tablet 10 mg PO Q12H 03/30/23 02/07/25 History venlafaxine 225 mg tablet,extended 225 mg PO DAILY 03/30/23 02/07/25 History release 24 hr Allergies Allergy/AdvReac Type Severity Reaction Status Date / Time No Known Allergies Allergy Unknown Verified 02/26/25 08:17 Vital Signs Vital Signs - 24 hr 02/26/25 08:25 Temperature 97.7 F Pulse Rate 102 H Respiratory Rate 18 Blood Pressure 121/82 Pulse Oximetry 100 Oxygen Delivery Room Air Exam Const: General: no acute distress and alert Orientation/consciousness: patient oriented x3 HENMT: Head: normocephalic and atraumatic Ears: hearing grossly normal bilaterally Face/Nose/Sinus: Normal nares present Mouth: Yes Normal oral and palatal mucosa present Eyes: Periorbital: periorbital findings normal Sclera: sclerae normal EOM: EOMs intact bilaterally Neck: Neck: normal visual inspection, no lymphadenopathy and trachea midline Chest: Chest palpation & inspection: normal inspection of the chest Resp: Effort & Inspection: normal respiratory effort Auscultation: clear to auscultation bilaterally Cardio: Jugular venous distension: no JVD Rate: regular rate Rhythm: regular rhythm Heart sounds: S1 normal heart sound present and S2 normal heart sound present Peripheral pulses: Peripheral pulses 2+ throughout GI: Inspection: normal to inspection GI Palp: Yes Soft to palpation, No Tenderness to palpation present (GI), No Guarding due to palpation present (GI) and No Rebound tenderness present Percussion: Yes normal to percussion Auscultation: normal bowel sounds : General: Yes no CVA tenderness Back/Spine/Pelvis: Back: no CVA tenderness Neuro: General: patient oriented x3, no focal motor deficits and CN's II-XI intact bilaterally Cognition (Neuro): normal cognition Speech: normal speech Motor exam (neuro): 5/5 motor strength present throughout Extrem: General: capillary refill normal and no clubbing, cyanosis or edema Assessment and Plan Assessment and plan (1) Screening for colorectal cancer: Code(s): Z12.11 - Encounter for screening for malignant neoplasm of colon; Z12.12 - Encounter for screening for malignant neoplasm of rectum Status: Acute Assessment and Plan: I have recommended colonoscopy. I have discussed the procedure, risks, benefits, and alternatives. Questions were answered. Patient is agreeable to proceed.
[2025-02-26 09:40] VITALS: BP 104/69; PULSE 88; RESP 19; O2SAT 100
[2025-02-26 09:50] VITALS: BP 104/70; PULSE 87; RESP 18; O2SAT 100
[2025-02-26 10:00] VITALS: BP 127/80; PULSE 85; RESP 20; O2SAT 100
== END 2025-02-26 10:14 | disposition home or self-care (01) ==
PROVIDERS: Anesthesiology; PCP Nurse Practitioner Family; Visit Provider Surgery
PROC: 0DJD8ZZ Inspection of Lower Intestinal Tract, Via Natural or Artificial Opening Endoscopic (ICD-10-PCS; CPT 45378; principal; 2025-02-26 09:00)
DX: Z12.11 Encounter for screening for malignant neoplasm of colon (principal); Z98.890 Other specified postprocedural states
CPT/HCPCS: 45378; J2003; J2704; J7120

== ENCOUNTER 2025-07-11 12:49 | Outpatient (CLI) | payer BC, SELFPAY ==
--- NOTE | ~2025-07-11 | MR_ITS ---
EXAMINATION: MR brain/brain stem wo/w con COMPARISON: Comparison 09/04/2016. HISTORY: NPH Cervical and thoracic myelopathy TECHNIQUE: Multiplanar multisequence images obtained of the brain without and with intravenous contrast, Prohance 17cc injected IV. FINDINGS: The cerebellar tonsils appear normal in location. There is no abnormal signal within the visualized clivus of the cervical spine. Pituitary does not appear enlarged There is no acute infarct or hemorrhage identified There are no areas of abnormal signal within the subcortical white matter No hydrocephalus or midline shift. No extra-axial fluid collections. Appropriate flow voids are maintained The mastoid air cells, sinuses and orbits are unremarkable There is no abnormal enhancement appreciated IMPRESSION: 1. No etiology to explain the patient's symptoms Reviewed, dictated and finalized at location P. HIC EDITOR
--- NOTE | ~2025-07-11 | MR_ITS ---
EXAMINATION: MR thoracic spine wo/w con, 07/11/2025 14:00 [employer] HISTORY: NPH Cervical and thoracic myelopathy COMPARISON: None TECHNIQUE: Multi-planar multi-sequence images were obtained of the thoracic spine without contrast per protocol. FINDINGS: The vertebral heights are intact. No fracture or subluxation. Marrow signal is appropriate with scattered areas of hemangioma formation. Posterior alignment is intact. There is no abnormal signal within the posterior elements There is no abnormal signal within the cord The disc heights are intact with no significant degeneration of disks or endplate degenerative changes. There is no severe canal or foraminal stenosis identified. There is no abnormal enhancement demonstrated IMPRESSION: Unremarkable exam Reviewed, dictated and finalized at location P. L ROOFING MECHANIC IMPRESSION: Unremarkable exam
--- NOTE | ~2025-07-11 | MR_ITS ---
EXAMINATION: MR cervical spine wo/w con COMPARISON: None HISTORY: NPH Cervical and thoracic myelopathy TECHNIQUE: Multiplanar multisequence images obtained of the cervical spine without and with intravenous contrast, Prohance 17cc injected IV. FINDINGS: The vertebral heights are intact. There is no fracture or subluxation. Marrow signal is appropriate. Posterior alignment is intact. There is no abnormal signal within the posterior elements or the clivus Visualized brain parenchyma is unremarkable. Cerebellar tonsils are in normal location. There is no abnormal signal within the cord Moderate loss of disc height at C3-4 C4-5 and C5-6 with minimal disc desiccation and endplate degenerative changes Appropriate flow voids are maintained. The soft tissues are unremarkable. Impression artifact severely limits evaluation with questionable focus of abnormal enhancement within the cord at the level of C5 and is not appreciated on the additional contrast-enhanced sequences obtained, there is Abnormal signal in this location the left of midline measuring 2 x 2 mm. C2-3: No canal or foraminal stenosis C3-4: No canal or foraminal stenosis C4-5: Circumferential bulging of the disc with facet hypertrophy. Mild bilateral foramina and canal stenosis C4-5: Circumferential bulging of the disc with moderate bilateral foramina and canal stenosis C6-7: Circumferential bulging of the disc with moderate bilateral foramina and mild canal stenosis C7-T1: No canal or foraminal stenosis IMPRESSION: 1. Degenerative changes detailed above. Small focus of abnormal signal and enhancement within the cord detailed above, a demyelinating lesion is not excluded. Follow-up is recommended to assess. Reviewed, dictated and finalized at location P. ARD [employer]ER[employer] OFFICER Impression artifact severely limits evaluation with questionable focus of abnor mal enhancement within the cord at the level of C5 and is not appreciated on th e additional contrast-enhanced sequences obtained, there is Abnormal signal in this location the left of midline measuring 2 x 2 mm. C2-3: No canal or foraminal stenosis C3-4: No canal or foraminal stenosis C4-5: Circumferential bulging of the disc with facet hypertrophy. Mild bilatera l foramina and canal stenosis C4-5: Circumferential bulging of the disc with moderate bilateral foramina and canal stenosis C6-7: Circumferential bulging of the disc with moderate bilateral foramina and mild canal stenosis C7-T1: No canal or foraminal stenosis IMPRESSION: 1. Degenerative changes detailed above. Small focus of abnormal signal and enha ncement within the cord detailed above, a demyelinating lesion is not excluded. Follow-up is recommended to assess.
== END 2025-07-11 12:50 | disposition home or self-care (01) ==
LOC: MICIMG 12:58
PROVIDERS: PCP Nurse Practitioner Family; Visit Provider Psychiatry & Neurology Neurology
DX: G91.2 (Idiopathic) normal pressure hydrocephalus (principal); M50.321 Other cervical disc degeneration at C4-C5 level; M47.812 Spondylosis without myelopathy or radiculopathy, cervical region; M48.02 Spinal stenosis, cervical region; M51.04 Intervertebral disc disorders with myelopathy, thoracic region
CPT/HCPCS: 70553; 72156; 72157; A9577